=== PATIENT | male | born 1950 | race African-American/Black ===

== ENCOUNTER 2017-07-02 13:35 | Emergency (ER) | payer MEDICARE, MEDICAID ==
[~2017-07-02] VITALS: Ht 188 cm; Wt 69.0 kg
[~2017-07-02 13:35] MED LIST: NO KNOWN ALLERGIES
[2017-07-02 13:48] VITALS: BP 143/88
== END 2017-07-02 17:24 | disposition left against medical advice (07) ==
LOC: ER 13:52
DX: M54.9 Dorsalgia, unspecified (principal); Z53.21 Procedure and treatment not carried out due to patient leaving prior to being seen by health care provider

== ENCOUNTER 2017-07-29 17:47 | Inpatient (IN) | payer MEDICARE, MEDICAID ==
[~2017-07-29] VITALS: Ht 188 cm; Wt 59.0 kg
[2017-07-29] MEDS ORDERED: SODIUM CHLORIDE 0.9% 1,000 ML IV ONE (18:29)
[2017-07-29 19:10] LABS: HEMATOCRIT. 33.5 % (42.0-52.0); HEMOGLOBIN. 11.4 g/dL (14.0-18.0); MEAN CORPUSCULAR HEMOGLOBIN 35.5 pg (28.0-32.0); MEAN CORPUSCULAR VOLUME 104.6 fL (80.0-94.0); MEAN PLATELET VOLUME 7.4 fl (7.4-10.4); PLATELET 145 x1000/uL (130-400); RED BLOOD CELL COUNT 3.21 mill/uL (4.7-6.1); RED CELL DISTRIBUTION WIDTH 15.6 % (11.6-14.6)
[2017-07-29 19:11] LABS: INR 1.2; PROTHROMBIN TIME 12.7 sec (9.4-11.6)
[2017-07-29 19:13] LABS: CARBON DIOXIDE 23 mEq/L (21-32); CHLORIDE 102 mEq/L (98-107)
[2017-07-29 19:23] LABS: ETHANOL BLOOD 317 mg/dL
[2017-07-29] MEDS ORDERED: SODIUM CHLORIDE 0.9% 1,000 ML IV SCH (20:28)
[2017-07-29 21:02] LABS: PLATELET ESTIMATE NORMAL
[2017-07-29 23:20] VITALS: BP 146/102
[2017-07-30] VITALS (7 sets, daily range): BP systolic 106–160; BP diastolic 68–107
[2017-07-30] MEDS ORDERED: SODIUM CHLORIDE 0.9% 1,000 ML IV SCH (00:49)
[2017-07-30] MEDS ORDERED: DIPHENHYDRAMINE 50MG/ML VIAL IV PRN (01:00)
[2017-07-30] MEDS ORDERED: ONDANSETRON HCL 4MG/2ML VIAL IV PRN (01:00)
[2017-07-30] MEDS ORDERED: ACETAMINOPHEN 325MG TABLET PO PRN (01:00)
[2017-07-30] MEDS ORDERED: LORAZEPAM 2MG/ML CPJ IV PRN (01:00)
[2017-07-30] MEDS ORDERED: MAGNESIUM/ALUMINUM HYDROXIDE/SIMETHICONE 30ML UDC PO PRN (01:00)
[2017-07-30] MEDS ORDERED: MVI, ADULT NO.1 10 ML, FOLIC ACID 1 MG, THIAMINE HCL 100 MG in SODIUM CHLORIDE 0.9% 1,0... IV SCH ×4 (02:00)
[2017-07-30 03:11] LABS: *AMPHETAMINES SCREEN URINE NEGATIVE (NEGATIVE); *BARBITURATES SCREEN URINE NEGATIVE (NEGATIVE); *BENZODIAZEPINES SCREEN URINE NEGATIVE (NEGATIVE); CANNABINOID URINE SCREEN NEGATIVE (NEGATIVE); METHADONE URINE SCREEN NEGATIVE (NEGATIVE); OPIATES URINE SCREEN NEGATIVE (NEGATIVE); PHENCYCLIDINE URINE SCREEN NEGATIVE (NEGATIVE)
[2017-07-30] MEDS: CLONIDINE 0.1MG TABLET PO PRN (04:03)
[2017-07-30 04:36] LABS: *COCAINE SCREEN URINE NEGATIVE (NEGATIVE)
[2017-07-30 07:43] LABS: HEMOGLOBIN 10.4 g/dL (14.0-18.0); MEAN CORPUSCULAR HEMOGLOBIN 35.2 pg (28.0-32.0); MEAN CORPUSCULAR VOLUME 104.9 fL (80.0-94.0); PLATELET 127 x1000/uL (130-400); RED BLOOD CELL COUNT 2.95 mill/uL (4.7-6.1); RED CELL DISTRIBUTION WIDTH 15.3 % (11.6-14.6)
[2017-07-30] MEDS: SODIUM CHLORIDE 0.9% 1,000 ML IV SCH (18:01)
[2017-07-31] VITALS (7 sets, daily range): BP systolic 88–168; BP diastolic 56–108
[2017-07-31] MEDS: CLONIDINE 0.1MG TABLET PO PRN (00:23)
[2017-07-31] MEDS: THIAMINE HCL 100MG TABLET PO SCH (08:33)
[2017-07-31 10:20] LABS: T4 FREE 1.1 ng/dL (0.76-1.46)
[2017-07-31] MEDS: ENOXAPARIN 40MG/0.4ML SYR SUBCUT SCH (13:12)
[2017-07-31] MEDS: SODIUM CHLORIDE 0.9% 1,000 ML IV SCH (16:31)
[2017-07-31 19:29] LABS: CREATINE KINASE 107 IU/L (39-308); TROPONIN I < 0.02 ng/mL (0.00-0.04)
[2017-08-01] VITALS (7 sets, daily range): BP systolic 118–143; BP diastolic 81–99
[2017-08-01 03:36] LABS: CREATINE KINASE 108 IU/L (39-308); CREATINE KINASE MB FRACTION 1.3 ng/mL (0.5-3.6); TROPONIN I < 0.02 ng/mL (0.00-0.04)
[2017-08-01] MEDS: THIAMINE HCL 100MG TABLET PO SCH (08:55)
[2017-08-01] MEDS: ENOXAPARIN 40MG/0.4ML SYR SUBCUT SCH (08:55)
[2017-08-01] MEDS: SODIUM CHLORIDE 0.9% 1,000 ML IV SCH (09:54)
[2017-08-01 12:54] LABS: CREATINE KINASE 108 IU/L (39-308); CREATINE KINASE MB FRACTION 1.4 ng/mL (0.5-3.6); TROPONIN I < 0.02 ng/mL (0.00-0.04)
[2017-08-02] VITALS (7 sets, daily range): BP systolic 115–170; BP diastolic 60–99
[2017-08-02] MEDS: SODIUM CHLORIDE 0.9% 1,000 ML IV SCH (03:01)
[2017-08-02] MEDS: THIAMINE HCL 100MG TABLET PO SCH (08:39)
[2017-08-02] MEDS: CLONIDINE 0.1MG TABLET PO PRN ×2 (08:40→16:21)
[2017-08-02] MEDS: ENOXAPARIN 40MG/0.4ML SYR SUBCUT SCH (08:40)
[2017-08-02] MEDS ORDERED: LOSARTAN POTASSIUM 25 MG TABLET PO SCH (10:00)
== END 2017-08-02 19:50 | DRG 74 ==
LOC: ER 17:53 → 7WST 20:30 → ENRESERV 22:26
PROVIDERS: ADMIT Internal Medicine; ATTEND Internal Medicine
DX: G90.8 Other disorders of autonomic nervous system (principal); I11.9 Hypertensive heart disease without heart failure; I82.509 Chronic embolism and thrombosis of unspecified deep veins of unspecified lower extremity; G62.9 Polyneuropathy, unspecified; D75.89 Other specified diseases of blood and blood-forming organs; D64.9 Anemia, unspecified; D72.819 Decreased white blood cell count, unspecified; I25.10 Atherosclerotic heart disease of native coronary artery without angina pectoris; G89.29 Other chronic pain; R20.0 Anesthesia of skin; M54.9 Dorsalgia, unspecified; T51.0X1A Toxic effect of ethanol, accidental (unintentional), initial encounter; Y92.89 Other specified places as the place of occurrence of the external cause; Z59.0 Homelessness
CPT/HCPCS: 36415; 70450; 71010; 80053; 80061; 80305; 82550; 82553; 83036; 83690; 83880; 84439; 84443; 84484; 85025; 85027; 85379; 85610; 93005; 93306; 93970; 96360; 96361; 97116; 97162; 99285; C1893; G0482; J1650; J3411; J3490; J7030

== ENCOUNTER 2018-05-17 12:06 | Emergency (ER) | payer MEDICARE, MEDICAID ==
[~2018-05-17] VITALS: Ht 188 cm; Wt 78.0 kg
[2018-05-17 12:20] VITALS: BP 140/91
[2018-05-17] MEDS ORDERED: DIPHENHYDRAMINE 25MG CAPSULE PO ONE (15:15)
[2018-05-17] MEDS ORDERED: DEXAMETHASONE 10 MG/ML VIAL IM ONE (15:15)
[2018-05-17] MEDS ORDERED: FAMOTIDINE 20MG TABLET PO ONE (15:15)
== END 2018-05-17 16:59 | disposition home or self-care (01) ==
LOC: ER 12:06
DX: R21 Rash and other nonspecific skin eruption (principal); I10 Essential (primary) hypertension
CPT/HCPCS: 96372; 99283; J1100; Q0163

== ENCOUNTER 2018-05-29 18:52 | Emergency (ER) | payer MEDICARE, MEDICAID ==
[~2018-05-29] VITALS: Ht 188 cm; Wt 78.0 kg
[2018-05-29 19:44] VITALS: BP 122/88
== END 2018-05-29 20:33 | disposition left against medical advice (07) ==
LOC: ER 18:52
DX: Z53.21 Procedure and treatment not carried out due to patient leaving prior to being seen by health care provider (principal)

== ENCOUNTER 2018-05-30 17:07 | Emergency (ER) | payer MEDICARE, MEDICAID ==
[~2018-05-30] VITALS: Ht 170.2 cm; Wt 78.0 kg
[2018-05-30 19:30] VITALS: BP 155/91
== END 2018-05-30 19:40 | disposition home or self-care (01) ==
LOC: ER 17:07
DX: L20.9 Atopic dermatitis, unspecified (principal); I10 Essential (primary) hypertension
CPT/HCPCS: 99283

== ENCOUNTER → 2018-06-08 | Outpatient (CLI) | payer MEDICARE, MEDICAID ==
[2018-06-08 13:32] LABS: CLARITY URINE CLEAR (CLEAR); COLOR URINE YELLOW (YELLOW); KETONES URINE NEGATIVE (NEGATIVE); LEUKOCYTE ESTERASE URINE NEGATIVE (NEGATIVE); NITRITE URINE NEGATIVE (NEGATIVE); OCCULT BLOOD URINE NEGATIVE (NEGATIVE); PH URINE 5.5 (4.5-8.0); PROTEIN URINE NEGATIVE (NEGATIVE); SPECIFIC GRAVITY URINE 1.011 (1.005-1.030); UROBILINOGEN URINE 0.2 E.U./dL (0.2-1.0)
[2018-06-08 13:56] LABS: BASOPHILS % 0.4 % (0.0-2.0); EOSINOPHILS % 7.4 % (0.0-5.0); HEMATOCRIT. 37.1 % (42.0-52.0); HEMOGLOBIN. 12.6 g/dL (14.0-18.0); LYMPHOCYTES % 30.9 % (20.0-50.0); MEAN CORPUSCULAR VOLUME 97.2 fL (80.0-94.0); MEAN PLATELET VOLUME 7.8 fl (7.4-10.4); NEUTROPHILS % 50.3 % (40.0-76.0); PLATELET 198 x1000/uL (130-400); RED BLOOD CELL COUNT 3.81 mill/uL (4.7-6.1); RED CELL DISTRIBUTION WIDTH 15.3 % (11.6-14.6)
[2018-06-08 14:01] LABS: CHLORIDE 101 mEq/L (98-107)
[2018-06-08 14:09] LABS: INR 1.1; PROTHROMBIN TIME 11.4 sec (9.4-11.6)
== END | disposition home or self-care (01) ==
LOC: LAB 13:08
PROVIDERS: ATTEND Internal Medicine
DX: K40.90 Unilateral inguinal hernia, without obstruction or gangrene, not specified as recurrent (principal); I11.9 Hypertensive heart disease without heart failure; F10.129 Alcohol abuse with intoxication, unspecified; Z86.2 Personal history of diseases of the blood and blood-forming organs and certain disorders involving the immune mechanism
CPT/HCPCS: 36415; 80053; 81003; 85025; 85610; 85730

== ENCOUNTER → 2018-06-09 | Outpatient (CLI) | payer MEDICARE, MEDICAID | END | disposition home or self-care (01) | LOC: CARD 11:35 | PROVIDERS: ATTEND Internal Medicine | DX: K40.90 Unilateral inguinal hernia, without obstruction or gangrene, not specified as recurrent (principal); I10 Essential (primary) hypertension | CPT/HCPCS: 93005 ==

== ENCOUNTER 2018-06-14 00:16 | Emergency (ER) | payer MEDICARE, MEDICAID ==
[~2018-06-14] VITALS: Ht 188 cm; Wt 78.0 kg
[2018-06-14 01:13] LABS: BASOPHILS % 0.7 % (0.0-2.0); EOSINOPHILS % 8.4 % (0.0-5.0); HEMATOCRIT. 39.8 % (42.0-52.0); HEMOGLOBIN. 13.3 g/dL (14.0-18.0); LYMPHOCYTES % 48.1 % (20.0-50.0); MEAN CORPUSCULAR HEMOGLOBIN 32.7 pg (28.0-32.0); MEAN CORPUSCULAR VOLUME 97.9 fL (80.0-94.0); MEAN PLATELET VOLUME 7.6 fl (7.4-10.4); MONOCYTES % 7.8 % (2.0-8.0); PLATELET 278 x1000/uL (130-400); RED BLOOD CELL COUNT 4.07 mill/uL (4.7-6.1); RED CELL DISTRIBUTION WIDTH 15.8 % (11.6-14.6)
[2018-06-14 01:19] LABS: CHLORIDE 104 mEq/L (98-107)
[2018-06-14 01:36] LABS: ETHANOL BLOOD 363 mg/dL
[2018-06-14 01:51] LABS: INR 1.1; PARTIAL THROMBOPLASTIN TIME 28.6 sec (23.4-31.0); PROTHROMBIN TIME 10.9 sec (9.4-11.6)
[2018-06-14 07:44] VITALS: BP 154/86
== END 2018-06-14 07:57 | disposition home or self-care (01) ==
LOC: ER 00:16 → CANBEDREQ 06:16 → ER 07:57
DX: R07.89 Other chest pain (principal); F10.129 Alcohol abuse with intoxication, unspecified; I10 Essential (primary) hypertension
CPT/HCPCS: 36415; 71045; 80053; 83690; 83880; 84484; 85025; 85610; 85730; 93005; 99285; G0482

== ENCOUNTER → 2018-07-04 | Outpatient (CLI) | payer MEDICARE, MEDICAID | END | disposition home or self-care (01) | LOC: LAB 12:32 | PROVIDERS: ATTEND Internal Medicine | DX: Z01.818 Encounter for other preprocedural examination (principal); H26.222 Cataract secondary to ocular disorders (degenerative) (inflammatory), left eye; I10 Essential (primary) hypertension | CPT/HCPCS: 71045 ==

== ENCOUNTER → 2018-07-05 | Outpatient (CLI) | payer MEDICARE, MEDICAID ==
[2018-07-05 10:39] LABS: BASOPHILS % 0.5 % (0.0-2.0); EOSINOPHILS % 4.2 % (0.0-5.0); HEMATOCRIT. 39.3 % (42.0-52.0); HEMOGLOBIN. 13.3 g/dL (14.0-18.0); LYMPHOCYTES % 20.5 % (20.0-50.0); MEAN CORPUSCULAR HEMOGLOBIN 33.1 pg (28.0-32.0); MEAN PLATELET VOLUME 7.1 fl (7.4-10.4); MONOCYTES % 10.3 % (2.0-8.0); NEUTROPHILS % 64.5 % (40.0-76.0); PLATELET 279 x1000/uL (130-400); RED BLOOD CELL COUNT 4.01 mill/uL (4.7-6.1); RED CELL DISTRIBUTION WIDTH 16.3 % (11.6-14.6)
[2018-07-05 10:45] LABS: INR 1.2; PARTIAL THROMBOPLASTIN TIME 29.2 sec (23.4-31.0); PROTHROMBIN TIME 12.2 sec (9.1-11.1)
[2018-07-05 13:19] LABS: CHLORIDE 94 mEq/L (98-107)
== END | disposition home or self-care (01) ==
LOC: LAB 10:06
PROVIDERS: ATTEND Internal Medicine
DX: Z01.818 Encounter for other preprocedural examination (principal); H25.12 Age-related nuclear cataract, left eye; I10 Essential (primary) hypertension; Z86.718 Personal history of other venous thrombosis and embolism; I25.10 Atherosclerotic heart disease of native coronary artery without angina pectoris; Z79.01 Long term (current) use of anticoagulants
CPT/HCPCS: 36415

== ENCOUNTER 2018-11-17 17:39 | Emergency (ER) | payer MEDICARE, MEDICAID ==
[~2018-11-17] VITALS: Ht 180.3 cm; Wt 88.0 kg
[2018-11-17] MEDS ORDERED: IBUPROFEN 600MG TABLET PO STA (18:23)
[2018-11-17 18:44] VITALS: BP 130/89
[2018-11-17 19:35] LABS: CHLORIDE 99 mEq/L (98-107)
[2018-11-17 19:36] LABS: BASOPHILS % 1.3 % (0.0-2.0); EOSINOPHILS % 9.7 % (0.0-5.0); HEMATOCRIT. 39.4 % (42.0-52.0); HEMOGLOBIN. 13.3 g/dL (14.0-18.0); LYMPHOCYTES % 53.4 % (20.0-50.0); MEAN CORPUSCULAR HEMOGLOBIN 34.1 pg (28.0-32.0); MEAN CORPUSCULAR VOLUME 100.8 fL (80.0-94.0); MEAN PLATELET VOLUME 6.9 fl (7.4-10.4); MONOCYTES % 7.7 % (2.0-8.0); NEUTROPHILS % 27.9 % (40.0-76.0); PLATELET 216 x1000/uL (130-400); RED BLOOD CELL COUNT 3.91 mill/uL (4.7-6.1); RED CELL DISTRIBUTION WIDTH 16.6 % (11.6-14.6)
[2018-11-17 19:48] LABS: ETHANOL BLOOD 408 mg/dL
== END 2018-11-17 19:32 | disposition left against medical advice (07) ==
LOC: ER 18:24
DX: M79.10 Myalgia, unspecified site (principal); F10.129 Alcohol abuse with intoxication, unspecified; I10 Essential (primary) hypertension; Y90.8 Blood alcohol level of 240 mg/100 ml or more
CPT/HCPCS: 36415; 80053; 85025; 93005; 99284; G0482

== ENCOUNTER 2019-07-17 20:29 | Emergency (ER) | payer MEDICARE, MEDICAID ==
[~2019-07-17] VITALS: Ht 182.9 cm; Wt 72.0 kg
[2019-07-17] MEDS ORDERED: ASPIRIN 81MG TABLET PO ONE (22:15)
[2019-07-17 23:00] LABS: BASOPHILS % 1.7 % (0.0-2.0); EOSINOPHILS % 10.7 % (0.0-5.0); HEMATOCRIT. 35.7 % (42.0-52.0); HEMOGLOBIN. 12.2 g/dL (14.0-18.0); LYMPHOCYTES % 45.1 % (20.0-50.0); MEAN CORPUSCULAR HEMOGLOBIN 33.3 pg (28.0-32.0); MEAN CORPUSCULAR VOLUME 97.4 fL (80.0-94.0); MEAN PLATELET VOLUME 8.1 fl (7.4-10.4); MONOCYTES % 6.8 % (2.0-8.0); NEUTROPHILS % 35.7 % (40.0-76.0); PLATELET 225 x1000/uL (130-400); RED BLOOD CELL COUNT 3.66 mill/uL (4.7-6.1)
[2019-07-17] MEDS ORDERED: IBUPROFEN 600MG TABLET PO ONE (23:15)
[2019-07-17 23:49] LABS: CHLORIDE 103 mEq/L (98-107)
[2019-07-18 07:57] VITALS: BP 136/98
== END 2019-07-18 09:15 | disposition home or self-care (01) ==
LOC: ER 20:29
DX: R07.9 Chest pain, unspecified (principal); I10 Essential (primary) hypertension; Z59.0 Homelessness
CPT/HCPCS: 36415; 71045; 83880; 84484; 93005; 99284

== ENCOUNTER 2019-08-08 16:02 | Inpatient (IN) | payer MEDICARE, MEDICAID ==
[~2019-08-08] VITALS: Ht 188 cm; Wt 72.6 kg
[2019-08-08] MEDS ORDERED: ASPIRIN 81MG TABLET PO ONE (16:30)
[2019-08-08] MEDS ORDERED: FAMOTIDINE 20MG/2ML VIAL IV ONE (16:30)
[2019-08-08] MEDS ORDERED: MAGNESIUM/ALUMINUM HYDROXIDE/SIMETHICONE 30ML UDC PO ONE (16:30)
[2019-08-08 16:42] LABS: HEMATOCRIT. 29.5 % (42.0-52.0); HEMOGLOBIN. 10.2 g/dL (14.0-18.0); MEAN CORPUSCULAR HEMOGLOBIN 33.9 pg (28.0-32.0); MEAN CORPUSCULAR VOLUME 98.5 fL (80.0-94.0); MEAN PLATELET VOLUME 7.3 fl (7.4-10.4); PLATELET 127 x1000/uL (130-400); RED BLOOD CELL COUNT 2.99 mill/uL (4.7-6.1); RED CELL DISTRIBUTION WIDTH 18.3 % (11.6-14.6)
[2019-08-08 16:46] LABS: CHLORIDE 105 mEq/L (98-107)
[2019-08-08 16:49] LABS: INR 1.1; PARTIAL THROMBOPLASTIN TIME 29.5 sec (23.4-31.0); PROTHROMBIN TIME 10.8 sec (9.6-11.0)
[2019-08-08 16:54] LABS: CREATINE KINASE 183 IU/L (39-308)
[2019-08-08 16:57] LABS: CREATINE KINASE MB FRACTION 1.3 ng/mL (0.5-3.6)
[2019-08-08 17:00] LABS: PLATELET ESTIMATE SLIGHTLY DECREASED
[2019-08-08] MEDS ORDERED: ACETAMINOPHEN 325MG TABLET PO PRN ×2 (17:00→23:00)
[2019-08-08 17:05] LABS: ETHANOL BLOOD 398 mg/dL
[2019-08-08 17:08] LABS: CLARITY URINE CLEAR (CLEAR); COLOR URINE YELLOW (YELLOW); KETONES URINE TRACE (NEGATIVE); LEUKOCYTE ESTERASE URINE NEGATIVE (NEGATIVE); NITRITE URINE NEGATIVE (NEGATIVE); OCCULT BLOOD URINE NEGATIVE (NEGATIVE); PH URINE 5.5 (4.5-8.0); PROTEIN URINE NEGATIVE (NEGATIVE); SPECIFIC GRAVITY URINE 1.012 (1.005-1.030); UROBILINOGEN URINE 0.2 E.U./dL (0.2-1.0)
[2019-08-08 17:25] LABS: *AMPHETAMINES SCREEN URINE NEGATIVE (NEGATIVE); *BARBITURATES SCREEN URINE NEGATIVE (NEGATIVE); CANNABINOID URINE SCREEN PRESUMTIVE POSITIVE (NEGATIVE)
[2019-08-08 17:26] LABS: *BENZODIAZEPINES SCREEN URINE NEGATIVE (NEGATIVE); *COCAINE SCREEN URINE NEGATIVE (NEGATIVE); METHADONE URINE SCREEN NEGATIVE (NEGATIVE); OPIATES URINE SCREEN NEGATIVE (NEGATIVE); PHENCYCLIDINE URINE SCREEN NEGATIVE (NEGATIVE)
[2019-08-08] MEDS ORDERED: FOLIC ACID 1 MG, THIAMINE HCL 100 MG, MVI, ADULT NO.1 10 ML in DEXTROSE 5% WATER 1,000 ML IV ONE ×4 (18:00)
[2019-08-08 21:30] VITALS: BP 151/92
[2019-08-08 22:00] VITALS: BP 151/92
[2019-08-08] MEDS ORDERED: MAGNESIUM/ALUMINUM HYDROXIDE/SIMETHICONE 30ML UDC PO PRN (23:00)
[2019-08-08] MEDS ORDERED: CLONIDINE 0.1MG TABLET PO PRN (23:00)
[2019-08-08] MEDS ORDERED: THIAMINE HCL 100MG TABLET PO SCH (23:00)
[2019-08-08] MEDS ORDERED: ONDANSETRON HCL 4MG/2ML INJ IV PRN (23:00)
[2019-08-08] MEDS ORDERED: LORAZEPAM 2MG/ML CPJ IV PRN (23:00)
[2019-08-08] MEDS ORDERED: MORPHINE SULFATE 2 MG/ML CPJ (NOT FOR IM USE) IV PRN (23:00)
[2019-08-08] MEDS ORDERED: HYDROCODONE/ACETAMINOPHEN 5/325MG TABLET PO PRN (23:00)
[2019-08-08] MEDS ORDERED: MULTIVITAMINS,THER W-MINERALS TABLET PO SCH (23:00)
[2019-08-08] MEDS ORDERED: DOCUSATE SODIUM 100MG CAPSULE PO PRN (23:00)
[2019-08-09] VITALS: BP 144/94
[2019-08-09] MEDS: AMLODIPINE 10MG TABLET PO SCH ×2 (00:53→09:03)
[2019-08-09] MEDS ORDERED: MAGNESIUM 2 G PREMIX 50 ML IV SCH (01:00)
[2019-08-09 04:00] VITALS: BP 143/91
[2019-08-09 06:49] LABS: HEMATOCRIT. 32.2 % (42.0-52.0); HEMOGLOBIN. 10.9 g/dL (14.0-18.0); MEAN CORPUSCULAR HEMOGLOBIN 33.5 pg (28.0-32.0); MEAN CORPUSCULAR VOLUME 99.2 fL (80.0-94.0); MEAN PLATELET VOLUME 7.5 fl (7.4-10.4); PLATELET 127 x1000/uL (130-400); RED BLOOD CELL COUNT 3.24 mill/uL (4.7-6.1); RED CELL DISTRIBUTION WIDTH 18.6 % (11.6-14.6)
[2019-08-09 06:51] LABS: CHLORIDE 104 mEq/L (98-107)
[2019-08-09 07:03] LABS: CREATINE KINASE 200 IU/L (39-308); HDL CHOLESTEROL 115 mg/dL (40-59); LDL CHOLESTEROL 41 mg/dL (5-100)
[2019-08-09 07:07] LABS: CREATINE KINASE MB FRACTION 1.1 ng/mL (0.5-3.6)
[2019-08-09 08:00] VITALS: BP 164/97
[2019-08-09] MEDS: FOLIC ACID 1MG TABLET PO SCH (09:03)
[2019-08-09] MEDS: THIAMINE HCL 100MG TABLET PO SCH (09:03)
[2019-08-09] MEDS: ASPIRIN 81MG EC TABLET PO SCH (09:03)
[2019-08-09] MEDS: MULTIVITAMINS,THER W-MINERALS TABLET PO SCH (09:03)
[2019-08-09] MEDS: ENOXAPARIN 40MG/0.4ML SYR SUBCUT SCH (09:04)
[2019-08-09] MEDS: PANTOPRAZOLE SODIUM 40 MG/VIAL IV SCH (09:05)
[2019-08-09] MEDS ORDERED: REGADENOSON 0.4 MG/5 ML IV ONE (11:30)
[2019-08-09 12:00] VITALS: BP 155/100
[2019-08-09] MEDS ORDERED: CLONIDINE 0.1MG TABLET PO SCH (12:00)
[2019-08-09 16:00] VITALS: BP 158/96
[2019-08-09 17:15] LABS: PLATELET ESTIMATE NORMAL
[2019-08-09 17:59] LABS: CREATINE KINASE 207 IU/L (39-308)
[2019-08-09 18:00] LABS: CREATINE KINASE MB FRACTION 1.1 ng/mL (0.5-3.6)
[2019-08-09 20:00] VITALS: BP 132/90
[2019-08-09] MEDS: CLONIDINE 0.1MG TABLET PO SCH (20:46)
[2019-08-10] VITALS: BP 130/90
[2019-08-10 04:00] VITALS: BP 120/75
[2019-08-10 06:54] LABS: HEMATOCRIT. 32.8 % (42.0-52.0); HEMOGLOBIN. 11.1 g/dL (14.0-18.0); MEAN CORPUSCULAR HEMOGLOBIN 33.2 pg (28.0-32.0); MEAN CORPUSCULAR VOLUME 97.8 fL (80.0-94.0); MEAN PLATELET VOLUME 7.8 fl (7.4-10.4); PLATELET 136 x1000/uL (130-400); RED BLOOD CELL COUNT 3.35 mill/uL (4.7-6.1); RED CELL DISTRIBUTION WIDTH 18.2 % (11.6-14.6)
[2019-08-10 07:04] LABS: CHLORIDE 96 mEq/L (98-107)
[2019-08-10 07:15] LABS: CREATINE KINASE 146 IU/L (39-308); CREATINE KINASE MB FRACTION < 1.0 ng/mL (0.5-3.6)
[2019-08-10 08:00] VITALS: BP 125/68
[2019-08-10] MEDS: CLONIDINE 0.1MG TABLET PO SCH (08:55)
[2019-08-10] MEDS: FOLIC ACID 1MG TABLET PO SCH (08:55)
[2019-08-10] MEDS: PANTOPRAZOLE SODIUM 40 MG/VIAL IV SCH (08:55)
[2019-08-10] MEDS: MULTIVITAMINS,THER W-MINERALS TABLET PO SCH (08:55)
[2019-08-10] MEDS: ASPIRIN 81MG EC TABLET PO SCH (08:55)
[2019-08-10] MEDS: THIAMINE HCL 100MG TABLET PO SCH (08:55)
[2019-08-10] MEDS: ENOXAPARIN 40MG/0.4ML SYR SUBCUT SCH (08:56)
[2019-08-10] MEDS: AMLODIPINE 10MG TABLET PO SCH (08:56)
[2019-08-10] MEDS ORDERED: POTASSIUM CHLORIDE 20MEQ TABLET SR PO NR (09:15)
[2019-08-10] MEDS ORDERED: REGADENOSON 0.4 MG/5 ML IV ONE (10:47)
[2019-08-10 11:58] VITALS: BP 121/82
[2019-08-10 13:57] LABS: PLATELET ESTIMATE NORMAL
== END 2019-08-10 14:16 | disposition home or self-care (01) | DRG 313 ==
LOC: ER 16:02 → 5WST 17:51 → EDBEDREQ 18:08 → ENRESERV 20:07
PROVIDERS: ADMIT Hospitalist; ATTEND Hospitalist
DX: R07.9 Chest pain, unspecified (principal); E44.1 Mild protein-calorie malnutrition; D63.8 Anemia in other chronic diseases classified elsewhere; F10.229 Alcohol dependence with intoxication, unspecified; I10 Essential (primary) hypertension; E87.6 Hypokalemia; Y90.8 Blood alcohol level of 240 mg/100 ml or more; Z79.899 Other long term (current) drug therapy; Z68.20 Body mass index [BMI] 20.0-20.9, adult
CPT/HCPCS: 36415; 71045; 78452; 80048; 80061; 80305; 80320; 81003; 82550; 82553; 83735; 83880; 84443; 84484; 93005; 93017; 93306; 93970; 99285; A9500; C9113; J1650; J2785; J3411; J3475; J3490; J7070; G0480

== ENCOUNTER 2019-09-21 17:44 | Emergency (ER) | payer BC, MEDICAID ==
[~2019-09-21] VITALS: Ht 182.9 cm; Wt 80.0 kg
[2019-09-21] MEDS ORDERED: FOLIC ACID 1 MG, THIAMINE HCL 100 MG, MVI, ADULT NO.1 10 ML in DEXTROSE 5% WATER 1,000 ML IV ONE ×4 (18:45)
[2019-09-21] MEDS ORDERED: ACETAMINOPHEN 325MG TABLET PO ONE (18:45)
[2019-09-21 18:54] LABS: HEMATOCRIT. 34.1 % (42.0-52.0); HEMOGLOBIN. 11.3 g/dL (14.0-18.0); MEAN CORPUSCULAR HEMOGLOBIN 33.1 pg (28.0-32.0); MEAN CORPUSCULAR VOLUME 100.5 fL (80.0-94.0); MEAN PLATELET VOLUME 7.3 fl (7.4-10.4); PLATELET 142 x1000/uL (130-400); RED BLOOD CELL COUNT 3.39 mill/uL (4.7-6.1); RED CELL DISTRIBUTION WIDTH 15.7 % (11.6-14.6)
[2019-09-21 18:58] LABS: CHLORIDE 104 mEq/L (98-107)
[2019-09-21 19:13] LABS: ETHANOL BLOOD 414 mg/dL
[2019-09-21 20:40] LABS: PLATELET ESTIMATE NORMAL
[2019-09-21] MEDS ORDERED: CHLORDIAZEPOXIDE 25MG CAPSULE PO ONE (20:45)
[2019-09-22 00:37] VITALS: BP 119/91
== END 2019-09-22 00:53 | disposition short-term general hospital (02) ==
LOC: ER 18:04 → CANBEDREQ 09-22 04:25
DX: R07.9 Chest pain, unspecified (principal); R55 Syncope and collapse; F10.129 Alcohol abuse with intoxication, unspecified; Y90.8 Blood alcohol level of 240 mg/100 ml or more; D72.819 Decreased white blood cell count, unspecified; R74.0 Nonspecific elevation of levels of transaminase and lactic acid dehydrogenase [LDH]; I10 Essential (primary) hypertension; I25.2 Old myocardial infarction
CPT/HCPCS: 36415; 70450; 71045; 80053; 80320; 83690; 83880; 84484; 85025; 93005; 96365; 96366; 99285; J3411; J3490; J7070; G0480

== ENCOUNTER 2019-11-01 18:45 | Emergency (ER) | payer BC, MEDICAID ==
[~2019-11-01] VITALS: Ht 188 cm; Wt 70.0 kg
[2019-11-01] MEDS ORDERED: IBUPROFEN 600MG TABLET PO STA (20:47)
[2019-11-01 21:32] LABS: HEMATOCRIT. 39.8 % (42.0-52.0); HEMOGLOBIN. 13.2 g/dL (14.0-18.0); MEAN CORPUSCULAR VOLUME 93.8 fL (80.0-94.0); MEAN PLATELET VOLUME 7.5 fl (7.4-10.4); PLATELET 176 x1000/uL (130-400); RED BLOOD CELL COUNT 4.24 mill/uL (4.7-6.1); RED CELL DISTRIBUTION WIDTH 16.5 % (11.6-14.6)
[2019-11-01 21:38] LABS: CHLORIDE 103 mEq/L (98-107)
[2019-11-01 21:54] LABS: ETHANOL BLOOD 401 mg/dL
[2019-11-01 22:08] LABS: *AMPHETAMINES SCREEN URINE NEGATIVE (NEGATIVE); *BARBITURATES SCREEN URINE NEGATIVE (NEGATIVE); *BENZODIAZEPINES SCREEN URINE NEGATIVE (NEGATIVE); *COCAINE SCREEN URINE NEGATIVE (NEGATIVE); METHADONE URINE SCREEN NEGATIVE (NEGATIVE); OPIATES URINE SCREEN NEGATIVE (NEGATIVE)
[2019-11-01 22:09] LABS: CANNABINOID URINE SCREEN NEGATIVE (NEGATIVE); PHENCYCLIDINE URINE SCREEN NEGATIVE (NEGATIVE)
[2019-11-01 22:12] LABS: PLATELET ESTIMATE NORMAL
[2019-11-02 07:00] VITALS: BP 126/85
== END 2019-11-02 07:04 | disposition home or self-care (01) ==
LOC: ER 18:45
DX: T51.91XA Toxic effect of unspecified alcohol, accidental (unintentional), initial encounter (principal); R07.9 Chest pain, unspecified; I10 Essential (primary) hypertension; Y92.9 Unspecified place or not applicable; F10.129 Alcohol abuse with intoxication, unspecified; Y90.8 Blood alcohol level of 240 mg/100 ml or more
CPT/HCPCS: 36415; 71045; 80305; 80320; 93005; 99284; G0480

== ENCOUNTER 2020-08-04 15:18 | Emergency (ER) | payer MEDICARE, MEDICAID ==
[~2020-08-04] VITALS: Ht 180.3 cm; Wt 73.0 kg
[2020-08-04 15:30] VITALS: BP 98/40
[2020-08-04] MEDS ORDERED: MAGNESIUM/ALUMINUM HYDROXIDE/SIMETHICONE 30ML UDC PO ONE (16:45)
[2020-08-04] MEDS ORDERED: VISCOUS LIDOCAINE 2% 15 ML UDC PO ONE (16:45)
[2020-08-04] MEDS ORDERED: ASPIRIN 81MG TABLET PO ONE (16:45)
[2020-08-04 17:31] LABS: BASOPHILS % 0.6 % (0.0-2.0); EOSINOPHILS % 2.1 % (0.0-5.0); HEMATOCRIT. 35.9 % (42.0-52.0); HEMOGLOBIN. 12.2 g/dL (14.0-18.0); LYMPHOCYTES % 53.5 % (20.0-50.0); MEAN CORPUSCULAR HEMOGLOBIN 34.4 pg (28.0-32.0); MONOCYTES % 9.3 % (2.0-8.0); NEUTROPHILS % 34.5 % (40.0-76.0); PLATELET 174 x1000/uL (130-400); RED BLOOD CELL COUNT 3.55 mill/uL (4.7-6.1); RED CELL DISTRIBUTION WIDTH 15.6 % (11.6-14.6)
[2020-08-04 17:38] LABS: CHLORIDE 101 mEq/L (98-107)
== END 2020-08-04 17:36 | disposition left against medical advice (07) ==
LOC: ER 15:18
DX: R07.89 Other chest pain (principal); E11.9 Type 2 diabetes mellitus without complications; I11.9 Hypertensive heart disease without heart failure
CPT/HCPCS: 36415; 71045; 80053; 83880; 84484; 85025; 93005; 99285